=== PATIENT | female | born 1980 | race Caucasian/White ===

== ENCOUNTER 2023-06-29 00:21 | Observation (INO) ==
[2023-06-29] MEDS ORDERED: MoRPHine SULFATE 4 MG/ML 1 ML CARP\\VIAL IV STA (00:55)
[2023-06-29] MEDS ORDERED: SODIUM CHLORIDE 0.9% 1,000 ML IV ONE (00:55)
[2023-06-29] MEDS ORDERED: KETOROLAC TROMETHAMINE 15 MG/ML VIAL IV STA (00:55)
[2023-06-29] MEDS ORDERED: ONDANSETRON INJ 2 MG/ML 2 ML VIAL IV STA (00:55)
--- NOTE | 2023-06-29 01:01 | Emergency Department Note ---
History of Present Illness General Chief complaint: Kidney Stone Stated complaint: KIDNEY STONE, SEVERE PAIN, VOMITING Time Seen by Provider: 06/29/23 00:51 History of Present Illness Maximum Pain Intensity: 8 This 43-year-old female who was admitted the other day for a kidney stone that had a stent placement the other day and lithotripsy by Dr. Crow presents the ER complaining of severe left flank pain. Patient states the stent came out today on its own. Patient complains of severe pain and vomiting. Patient denies chest pain, dyspnea, fevers, flulike illness. She was concerned and came in. Home Medications Medication Instructions Recorded Confirmed Type acetaminophen 500 mg tablet 500 - 1,000 mg PO Q6H PRN Pain 04/08/21 06/25/23 History fluticasone propionate 50 2 spray intranasal DAILY PRN Nasal 06/25/23 06/25/23 History mcg/actuation nasal Congestion spray,suspension ibuprofen 200 mg tablet (Advil) 200 - 400 mg PO Q6H PRN Pain 06/25/23 06/25/23 History ciprofloxacin HCl 500 mg tablet 500 mg PO BID #20 tabs 06/27/23 Rx (Cipro) tamsulosin 0.4 mg capsule 0.4 mg PO HS #10 caps 06/27/23 Rx Allergies Allergy/AdvReac Type Severity Reaction Status Date / Time No Known Allergies Allergy Unverified 04/08/21 15:42 Past Med/Surg History Medical History No pertinent family history No pertinent past medical history Surgical History History of tonsillectomy Social History Smoking Status: Current some day smoker Second Hand Exposure: No; Do You Dip or Chew Tobacco: No; Hx Alcohol Use: Yes Alcohol type: wine and hard liquor Alcohol Intake Frequency: Monthly or Less Hx Substance Use: Yes Last Used Substance: Hours (ago) Last Used Substance Other:: daily Preferred Language: Wolof Communication Ability: Effective [employer] Specials Required: No Beliefs That Will Affect Care: None Current Living Situation: Spouse Current Living Situation Comment: in a house Feels Safe at Home: Yes Assistive Devices: None Review of Systems A total of 10 systems reviewed and were otherwise negative Physical Exam Vital Signs Vital Signs - 24 hr 06/29/23 00:29 06/29/23 01:15 06/29/23 02:15 Temperature 36.9 C Temperature Source Temporal Artery Scan Pulse Rate 72 71 Pulse Rate [Apical] 57 L Respiratory Rate 16 16 Respiratory Effort / Characteristics Non-Labored Spontaneous Non-Labored Spontaneous Respiratory Depth Normal Normal Respiratory Pattern Regular Blood Pressure 156/94 H Blood Pressure [Left Arm] 160/99 H Blood Pressure Mean 114 Blood Pressure Mean [Left Arm] 119 Pulse Oximetry 98 96 Oxygen Delivery Method Room Air Room Air Sepsis Recent Fever Within 48 Hours No Sepsis New/Unexplained Change in Mental Status N/A Sepsis Action Taken by Nursing No Action Required VITALS: Vitals are noted on the nurse's note and reviewed by myself. Vital signs stable. GENERAL: Pleasant female holding the vomit bag, in no acute distress, nondiapho retic, well-developed well-nourished. SKIN: The skin was without rashes, erythema, edema, or bruising. There is no tenting of the skin. Capillary reflex less than 2 seconds. HEAD: Normocephalic atraumatic. EARS: External auditory canals clear, EYES: Pupils equal round and reactive to light and accommodation. Conjunctivae without injection, sclerae without icterus. Extraocular movements intact. NOSE: Patent, turbinates without inflammation or discharge. MOUTH: Mucous membranes moist. Pharynx without erythema or exudate. Uvula midline. Airway patent. Tongue does not deviate. NECK: Supple without nuchal rigidity. No lymphadenopathy. No thyromegaly. Cervical spine is nontender. No JVD. HEART: Regular rate and rhythm LUNGS: Clear to auscultation bilaterally without wheezes, rales or rhonchi. No retractions or accessory muscle use. ABDOMEN: Positive bowel sounds x 4. Normal tympanic percussion. Soft, nontender, without masses or organomegaly. Reid sign negative. No guarding or rebound tenderness. No CVA tenderness MUSCULOSKELETAL: No muscle atrophy, erythema, or edema noted. NEURO: Patient was alert and oriented to person place and time. Normal sensatio n to light and sharp touch. No focal neurological deficits. Course Administered Medications Discontinued Medications Sodium Chloride (Nss) 1,000 mls @ 999 mls/hr IV .Q1H1M ONE Stop: 06/29/23 01:55 Last Infusion: 06/29/23 03:14 Dose: 0 mls/hr Documented By: terminal carman: 06/29/23 01:34 Dose: 999 mls/hr Documented By: MED Acetaminophen (Ofirmev) 1,000 mg in 100 mls @ 400 mls/hr IV NOW STA Stop: 06/29/23 02:35 Last Infusion: 06/29/23 03:14 Dose: 0 mls/hr Documented By: terminal carman: 06/29/23 02:36 Dose: 400 mls/hr Documented By: MED Ketorolac Tromethamine (Ketorolac Tromethamine 15 Mg/Ml Vial) 10 mg IV NOW STA Stop: 06/29/23 00:56 Last Admin: 06/29/23 01:29 Dose: 10 mg Documented By: MED Morphine Sulfate (Morphine Sulfate 4 Mg/Ml 1 Ml Carp\Vial) 4 mg IV NOW STA Stop: 06/29/23 00:56 Last Admin: 06/29/23 01:36 Dose: 4 mg Documented By: MED Ondansetron HCl (Ondansetron Inj 2 Mg/Ml 2 Ml Vial) 4 mg IV NOW STA Stop: 06/29/23 00:56 Last Admin: 06/29/23 01:31 Dose: 4 mg Documented By: MED Tamsulosin HCl (Tamsulosin Hcl 0.4 Mg Cap) 0.4 mg PO NOW ONE Stop: 06/29/23 02:22 Last Admin: 06/29/23 02:35 Dose: 0.4 mg Documented By: MED Medical Decision Making Medical Records Attestation: I reviewed the patient's medical records. Home Medications Current Medication List: was personally reviewed by me Laboratory Data Attestation: I reviewed the patient's lab results. 06/29/23 01:07 06/29/23 01:07 Lab Results 06/29/23 06/29/23 06/29/23 Range/Units 01:07 01:07 01:07 WBC 13.37 H (4.8-10.8) K/ul RBC 4.82 (4.20-5.40) M/uL Hgb 14.2 (12.0-16.0) g/dl Hct 41.5 (37.0-47.0) % MCV 86.1 (80.0-100.0) fL MCH 29.5 (25.0-34.0) pg MCHC 34.2 (32.0-36.0) g/dL RDW Std Deviation 41.2 (36.4-46.3) fL RDW Coeff of Eliane 13.2 (11.5-14.5) % Plt Count 344 (130-400) K/uL MPV 9.8 (9.4-12.4) fL Immature Gran % (Auto) 0.3 % Neut % (Auto) 82.8 % Lymph % (Auto) 11.4 % [place] % (Auto) 4.9 % Eos % (Auto) 0.3 % Baso % (Auto) 0.3 % Neut # (Auto) 11.07 H (1.40-6.50) K/uL Lymph # (Auto) 1.53 (1.20-3.40) K/uL [place] # (Auto) 0.65 H (0.11-0.59) K/uL Eos # (Auto) 0.04 (0.00-0.50) K/uL Baso # (Auto) 0.04 (0.00-0.20) K/uL Immature Gran # (Auto) 0.04 (0.01-0.20) K/uL Sodium 140 (136-145) mmol/L Potassium 3.4 L (3.5-5.1) mmol/L Chloride 103 (98-107) mmol/L Carbon Dioxide 28 (21-32) mmol/L Anion Gap 9 (3-11) BUN 19 (6-23) mg/dl Creatinine 1.14 D (0.6-1.2) mg/dl Est Cr Clr Drug Dosing 86.9 ml/min Est GFR ( Amer) 68.2 ml/min Est GFR (Non-Af Amer) 58.8 ml/min BUN/Creatinine Ratio 16.7 (10-20) Glucose 156 H (70-99(Fasting)) mg/dl Calcium 10.1 (8.6-10.3) mg/dl Total Bilirubin 0.5 (0.2-1.0) mg/dl AST 12 L (13-39) U/L ALT 10 (7-52) U/L Alkaline Phosphatase 63 (34-104) U/L Total Protein 8.4 H (6.0-8.3) gm/dl Albumin 4.8 (3.4-5.0) gm/dl Globulin 3.6 (2.5-4.0) gm/dl Albumin/Globulin Ratio 1.3 (0.9-2) Urine Color Yellow Urine Appearance Clear (Clear) Urine pH 6.5 (4.5-7.5) Ur Specific [place] 1.021 (1.000-1.030) Urine Protein 2+ H (Negative) Urine Glucose (UA) Negative (Negative) Urine Ketones Trace H (Negative) Urine Blood 3+ H (Negative) Urine Nitrite Negative (Negative) Urine Bilirubin Negative (Negative) Urine Urobilinogen Negative (Negative) Ur Leukocyte Esterase Negative (Negative) Urine WBC (Auto) 1-5 (0-5) /hpf Urine RBC (Auto) >30 H (0-4) /hpf U Hyaline Cast (Auto) 0 (0-5) /lpf U Epithel Cells (Auto) 20-30 H (0-5) /lpf Urine Bacteria (Auto) Negative (Negative) Imaging Data Attestation: I personally reviewed and interpreted this imaging study as follows: Radiologist's Impression: Abdomen/Pelvis CT 06/29/23 00:55 Exam(s): CT ABDOMEN + PELVIS Without Contrast EXAM: CT Abdomen and Pelvis Without Intravenous Contrast CLINICAL HISTORY: Reason for exam: left flank pain. TECHNIQUE: Axial computed tomography images of the abdomen and pelvis without intravenous contrast. CTDI is 27.76 mGy and DLP is 1466.22 mGy-cm. Automated exposure control was utilized for the study. A dose lowering technique was utilized adhering to the principles of ALARA. COMPARISON: June 25, 2023. The FINDINGS: Lung bases: Unremarkable. No mass. No consolidation. ABDOMEN: Liver: The liver is mildly enlarged measuring 19.5 cm craniocaudad. No focal liver lesion is seen. Gallbladder and bile ducts: Unremarkable. No calcified stones. No ductal dilation. Pancreas: Unremarkable. No ductal dilation. Spleen: Unremarkable. No splenomegaly. Adrenals: Unremarkable. No mass. Kidneys and ureters: Mild left hydronephrosis and hydroureter down to the ureterovesicular junction. There are at least 3 small calculi in the distal left ureter measuring up to 4 mm in diameter. Stomach and bowel: See below. PELVIS: Appendix: The appendix is normal. Bowel loops are nondilated. There is diverticulosis of the lower left and sigmoid colon without signs of acute diverticulitis. Bladder: Unremarkable. No stones. Reproductive: There is an IUD within the uterus. No free fluid is seen in the pelvis. ABDOMEN and PELVIS: Intraperitoneal space: See above. Bones/joints: No acute fracture. No dislocation. Soft tissues: Unremarkable. Vasculature: Unremarkable. No abdominal aortic aneurysm. Lymph nodes: Unremarkable. No enlarged lymph nodes. IMPRESSION: Mild left hydronephrosis and hydroureter down to the ureterovesicular junction. There are at least 3 small calculi in the distal left ureter measuring up to 4 mm in diameter. Most of the previously seen 9 mm calculus is no longer present. There are several calyceal calculi the left kidney measuring up to 4 mm. Electronically signed by: Hugh Bryan MD 06/29/23 03:22 AM [facility] Narrative Prior records/ancillary studies reviewed. Triage Nursing notes reviewed. Additional history obtained from the family. The patient's history was concerning for flank pain. Differential diagnosis: Etiologies such as renal colic, appendicitis, diverticulitis, mesenteric ischemia, aortic pathology, infections, inflammatory bowel disease, PUD, biliary pathology, UTI, as well as others were entertained. Physical examination findings: As above. ER treatment provided: Toradol, Zofran, morphine, IV fluids were ordered On reassessment the patient felt better. Diagnostic interpretation by me: The labs Independently Interpreted by myself revealed mild leukocytosis. Urinalysis revealed There was no sign of UTI. Hyperglycemia without DKA Imaging studies: CT the abdomen pelvis was reviewed and independent of myself and read by radiology and was concerning for mild left hydronephrosis and hydroureter down to the ureterovesicular junction. There are at least 3 small calculi in the distal left ureter measuring up to 4 mm in diameter. Most of the previously seen 9 mm calculus is no longer present. There are several calyceal calculi the left kidney measuring up to 4 mm. Consultation: A consultation was placed with the hospitalist. The case was discussed and diagnostics were reviewed. The patient was evaluated in the ER for further treatment. It appears that the patient has isolated renal colic from a left sided stone. Patient still in severe amount of pain. Medicine was consulted and the case discussed. Patient would be admitted to the medical service. Labs and diagnostics were independently interpreted by myself. Prior reports were reviewed. By the evaluation outlined above emergent etiologies such as appen dicitis, diverticulitis, mesenteric ischemia, aortic pathology, infections, inflammatory bowel disease, PUD, biliary pathology, UTI, as well as others were deemed relatively unlikely. The pt informed about the findings as listed above. All questions were answered and pleased with the treatment. The chart was completed utilizing [employer] Speech voice recognition software. Grammatical errors, random word insertions, pronoun errors, and incomplete sentences are an occassional consequence of this system due to software limitations, ambient noise, and hardware issues. Any formal questions or concerns about the content, text, or information contained within the body of this dictation should be directly addressed to the physician assistant professor of communication for clarification. Impression & Plan Hydronephrosis of left kidney, Calculus of distal left ureter, Hypokalemia Discharge Plan Visit Data Chief Complaint: Kidney Stone Stated Complaint: KIDNEY STONE, SEVERE PAIN, VOMITING ED Provider: Taniya Yu ED Midlevel Provider: Deb Ling Discharge Problem: Hydronephrosis of left kidney, Calculus of distal left ureter, Hypokalemia Patient Disposition: Admitted As Inpatient Forms Stand Alone Forms: [facility] Prescriptions Prescriptions: No Action acetaminophen 500 mg Tablet 500 - 1,000 mg PO Q6H PRN (Reason: Pain) ibuprofen [Advil] 200 mg Tablet 200 - 400 mg PO Q6H PRN (Reason: Pain) fluticasone propionate 50 mcg/actuation spray,suspension 2 spray INTRANASAL DAILY PRN (Reason: Nasal Congestion) tamsulosin 0.4 mg Capsule 0.4 mg PO HS Qty: 10 0RF ciprofloxacin HCl [Cipro] 500 mg tablet 500 mg PO BID Qty: 20 0RF Referrals Referrals: Claudia Villar MD [Primary Care Provider] -
[2023-06-29 01:43] LABS: Albumin Globulin Ratio 1.3 (0.9-2); Albumin Level 4.8 gm/dl (3.4-5.0); BUN Creatinine Ratio 16.7 (10-20); Bilirubin,Total 0.5 mg/dl (0.2-1.0); Calcium 10.1 mg/dl (8.6-10.3); Creatinine Clr Calc Pharmacy 86.9 ml/min; Est GFR (African American) 68.2 ml/min; Est GFR (Non-African American) 58.8 ml/min; Globulin 3.6 gm/dl (2.5-4.0); Potassium 3.4 mmol/L (3.5-5.1); Total Protein 8.4 gm/dl (6.0-8.3)
[2023-06-29 02:02] LABS: Basophils # (auto) 0.04 K/uL (0.00-0.20); Basophils % (auto) 0.3 %; Eosinophils # (auto) 0.04 K/uL (0.00-0.50); Eosinophils % (auto) 0.3 %; Hematocrit (blood only) 41.5 % (37.0-47.0); Hemoglobin 14.2 g/dl (12.0-16.0); Immature Granulocytes # (auto) 0.04 K/uL (0.01-0.20); Immature Granulocytes % (auto) 0.3 %; Lymphocytes # (auto) 1.53 K/uL (1.20-3.40); Lymphocytes % (auto) 11.4 %; Mean Corpuscular Hemoglobin 29.5 pg (25.0-34.0); Mean Corpuscular Hgb Conc 34.2 g/dL (32.0-36.0); Mean Corpuscular Volume 86.1 fL (80.0-100.0); Mean Platelet Volume 9.8 fL (9.4-12.4); Monocytes # (auto) 0.65 K/uL (0.11-0.59); Monocytes % (auto) 4.9 %; Neutrophils # (auto) 11.07 K/uL (1.40-6.50); Neutrophils % (auto) 82.8 %; Platelet Count 344 K/uL (130-400); RDW Coefficient of Variation 13.2 % (11.5-14.5); RDW Standard Deviation 41.2 fL (36.4-46.3); Red Blood Count 4.82 M/uL (4.20-5.40); White Blood Count 13.37 K/ul (4.8-10.8)
[2023-06-29 02:09] LABS: Appearance Urine Clear (Clear); Bacteria Urine Automated Negative (Negative); Bilirubin Urine Negative (Negative); Blood Urine 3+ (Negative); Cast Urine Automated 0 /lpf (0-5); Color Urine Yellow; Epithelial Cell Urine Auto 20-30 /lpf (0-5); Glucose Urine UA Negative (Negative); Ketones Urine Trace (Negative); Leukocyte Esterase Urine Negative (Negative); Nitrite Urine Negative (Negative); Protein Urine 2+ (Negative); RBC Urine Automated >30 /hpf (0-4); Specific Gravity Urine 1.021 (1.000-1.030); Urobilinogen Urine Negative (Negative); pH Urine 6.5 (4.5-7.5)
[2023-06-29] MEDS ORDERED: ACETAMINOPHEN 1,000 MG/100 ML VIAL IV STA (02:21)
[2023-06-29] MEDS ORDERED: TAMSULOSIN HCL 0.4 MG CAP PO ONE (02:21)
--- NOTE | 2023-06-29 03:23 | CT Scan Report ---
Exam(s): CT ABDOMEN + PELVIS Without Contrast EXAM: CT Abdomen and Pelvis Without Intravenous Contrast CLINICAL HISTORY: Reason for exam: left flank pain. TECHNIQUE: Axial computed tomography images of the abdomen and pelvis without intravenous contrast. CTDI is 27.76 mGy and DLP is 1466.22 mGy-cm. Automated exposure control was utilized for the study. A dose lowering technique was utilized adhering to the principles of ALARA. COMPARISON: June 25, 2023. The FINDINGS: Lung bases: Unremarkable. No mass. No consolidation. ABDOMEN: Liver: The liver is mildly enlarged measuring 19.5 cm craniocaudad. No focal liver lesion is seen. Gallbladder and bile ducts: Unremarkable. No calcified stones. No ductal dilation. Pancreas: Unremarkable. No ductal dilation. Spleen: Unremarkable. No splenomegaly. Adrenals: Unremarkable. No mass. Kidneys and ureters: Mild left hydronephrosis and hydroureter down to the ureterovesicular junction. There are at least 3 small calculi in the distal left ureter measuring up to 4 mm in diameter. Stomach and bowel: See below. PELVIS: Appendix: The appendix is normal. Bowel loops are nondilated. There is diverticulosis of the lower left and sigmoid colon without signs of acute diverticulitis. Bladder: Unremarkable. No stones. Reproductive: There is an IUD within the uterus. No free fluid is seen in the pelvis. ABDOMEN and PELVIS: Intraperitoneal space: See above. Bones/joints: No acute fracture. No dislocation. Soft tissues: Unremarkable. Vasculature: Unremarkable. No abdominal aortic aneurysm. Lymph nodes: Unremarkable. No enlarged lymph nodes. IMPRESSION: Mild left hydronephrosis and hydroureter down to the ureterovesicular junction. There are at least 3 small calculi in the distal left ureter measuring up to 4 mm in diameter. Most of the previously seen 9 mm calculus is no longer present. There are several calyceal calculi the left kidney measuring up to 4 mm. Electronically signed by: Hugh Bryan MD 06/29/23 03:22 AM
--- NOTE | 2023-06-29 03:59 | History & Physical Report ---
Date of Service June 29, 2023 Assessment & Plan (1) Hydronephrosis of left kidney: (2) Calculus of distal left ureter: (3) Mechanical complication of ureteral stent: Plan Mechanical complication of ureteral stent/distal left ureteral calculi/left hydronephrosis- Patient was initially admitted on 06/25-06/27 for a 9 mm left ureteral calculus On 06/26 patient underwent lithotripsy and ureteral stent placement and was discharged on 06/27 Patient reports that the stent became dislodged, where she was aware of about 2 inches of the stent protruding externally, at which time she pulled the stent out. Urology has recommended patient be admitted for further evaluation and treatment CT scan of abdomen pelvis this point shows a number of small ureteral calculi up to 4 mm in size in the distal left ureter, along with mild left hydronephrosis Follow urine culture sensitivities Ceftriaxone 2 g IV daily Tamsulosin 0.4 mg daily NSS + KCl 20 mEq at 100 mils per hour Acetaminophen 650 mg by mouth every 6 hours as needed for mild pain or fever Toradol 15 mg IV every 6 hours as needed for moderate pain Morphine sulfate 4 mg IV every 3 hours as needed for severe pain NPO except meds Consult urology History of Present Illness Chief Complaint: The patient is referred to the emergency department by outpatient urology when she reported that the left ureteral stent which was placed on 06/26/[address] out, and she pulled it the rest of the way out. Primary Care Provider: Claudia Villar MD The patient is a 43-year-old female with a past medical history including 9 mm distal left ureteral stone with left hydronephrosis, requiring admission from 06/25-06/27/2023 for treatment. She underwent lithotripsy and ureteral stent placement on 06/26/2023, was treated with ceftriaxone IV and tamsulosin by mouth, and was then discharged to home on 07/07. Patient reports that she noted yesterday that about 2 inches of the stent had been visible externally, and she pulled it out the rest of the way, and then called urology on the phone. Urology advised the patient to come to the ED for assessment. CT scan of abdomen and pelvis reveals at least 3 small calculi in the distal left ureter measuring up to 4 mm in diameter, and most of the previously seen 9 mm calculus is no longer present Significant laboratories: WBC 13.37, potassium 3.4, glucose 156 From the ED patient received the following: Normal saline 1 L, Zofran 4 mg IV, Toradol 10 mg IV, morphine sulfate 4 mg IV, tamsulosin 0.4 mg and Tylenol 1 g IV Allergies Allergy/AdvReac Type Severity Reaction Status Date / Time No Known Allergies Allergy Unverified 04/08/21 15:42 Home Medications Medication Instructions Recorded Confirmed Type acetaminophen 500 mg tablet 500 - 1,000 mg PO Q6H PRN Pain 04/08/21 06/25/23 History fluticasone propionate 50 2 spray intranasal DAILY PRN Nasal 06/25/23 06/25/23 History mcg/actuation nasal Congestion spray,suspension ibuprofen 200 mg tablet (Advil) 200 - 400 mg PO Q6H PRN Pain 06/25/23 06/25/23 History ciprofloxacin HCl 500 mg tablet 500 mg PO BID #20 tabs 06/27/23 Rx (Cipro) tamsulosin 0.4 mg capsule 0.4 mg PO HS #10 caps 06/27/23 Rx Past Med/Surg History Medical History No pertinent family history No pertinent past medical history Surgical History History of tonsillectomy Social History Smoking Status: Current some day smoker Second Hand Exposure: No; Do You Dip or Chew Tobacco: No; Hx Alcohol Use: Yes Alcohol type: wine and hard liquor Alcohol Intake Frequency: Monthly or Less Hx Substance Use: Yes Last Used Substance: Hours (ago) Last Used Substance Other:: daily Preferred Language: Vietnamese Communication Ability: Effective 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 Beliefs That Will Affect Care: None Current Living Situation: Spouse Current Living Situation Comment: in a house Feels Safe at Home: Yes Assistive Devices: None Review of Systems Review of Systems: The patient denies chest pain, palpitations, shortness of breath, dyspnea on exertion, cough, lower extremity swelling, sore throat, fevers, chills, sweats, weight change, fatigue, nausea, vomiting, diarrhea , constipation, blood in urine or stool, dysuria, urinary frequency or urgency, lightheadedness, dizziness, headache, memory loss, loss of consciousness, rash, abnormal bruising or bleeding, imbalance, focal or generalized weakness, numbness or tingling in arms or legs, generalized arthralgias or myalgias, back or neck pain, or night sweats. The review of systems is otherwise negative other than for that already noted a antoni, and at least 10 systems have been reviewed. Physical Exam Physical Exam: The patient is awake, alert and oriented 3, well developed and well nourished, normocephalic and atraumatic, lying in bed and in no acute distress. HEENT--PERRL, EOMI, mucous membranes and oropharynx dry. Neck--supple. No JVD. No bruits. Thyroid normal, trachea midline, no adenopathy. Heart--normal S1 and S2. No murmurs, rubs or gallops. Lungs--clear bilaterally, no respiratory distress, no accessory muscle use. Abdomen--normal bowel sounds and soft. Nontender. Nondistended, no hernias or masses, no organomegaly. Extremities--no cyanosis or clubbing. No edema. There are good distal pulses b/l. Dermatologic--normal skin turgor, normal color, no abnormal lymph nodes, no rash. Neurologic--cranial nerves II through XII grossly intact. Rheumatologic--normal range of motion. Psychiatric--normal affect. Results & Data Results & Data Vital Signs (Past 12 Hours) Vital Signs Temp Pulse Pulse Resp BP BP Pulse Ox 06/29/23 02:15 57 L 16 160/99 H 96 06/29/23 01:15 71 06/29/23 00:29 36.9 C 72 16 156/94 H 98 O2 Del Method 06/29/23 02:15 Room Air 06/29/23 01:15 06/29/23 00:29 Room Air Laboratory Results Laboratory Results WBC 13.37 K/ul (4.8-10.8) H 06/29/23 01:07 RBC 4.82 M/uL (4.20-5.40) 06/29/23 01:07 Hgb 14.2 g/dl (12.0-16.0) 06/29/23 01:07 Hct 41.5 % (37.0-47.0) 06/29/23 01:07 MCV 86.1 fL (80.0-100.0) 06/29/23 01:07 MCH 29.5 pg (25.0-34.0) 06/29/23 01:07 MCHC 34.2 g/dL (32.0-36.0) 06/29/23 01:07 RDW Std Deviation 41.2 fL (36.4-46.3) 06/29/23 01:07 RDW Coeff of Eliane 13.2 % (11.5-14.5) 06/29/23 01:07 Plt Count 344 K/uL (130-400) 06/29/23 01:07 MPV 9.8 fL (9.4-12.4) 06/29/23 01:07 Immature Gran % (Auto) 0.3 % 06/29/23 01:07 Neut % (Auto) 82.8 % 06/29/23 01:07 Lymph % (Auto) 11.4 % 06/29/23 01:07 Russell % (Auto) 4.9 % 06/29/23 01:07 Eos % (Auto) 0.3 % 06/29/23 01:07 Baso % (Auto) 0.3 % 06/29/23 01:07 Neut # (Auto) 11.07 K/uL (1.40-6.50) H 06/29/23 01:07 Lymph # (Auto) 1.53 K/uL (1.20-3.40) 06/29/23 01:07 Russell # (Auto) 0.65 K/uL (0.11-0.59) H 06/29/23 01:07 Eos # (Auto) 0.04 K/uL (0.00-0.50) 06/29/23 01:07 Baso # (Auto) 0.04 K/uL (0.00-0.20) 06/29/23 01:07 Immature Gran # (Auto) 0.04 K/uL (0.01-0.20) 06/29/23 01:07 Sodium 140 mmol/L (136-145) 06/29/23 01:07 Potassium 3.4 mmol/L (3.5-5.1) L 06/29/23 01:07 Chloride 103 mmol/L (98-107) 06/29/23 01:07 Carbon Dioxide 28 mmol/L (21-32) 06/29/23 01:07 Anion Gap 9 (3-11) 06/29/23 01:07 BUN 19 mg/dl (6-23) 06/29/23 01:07 Creatinine 1.14 mg/dl (0.6-1.2) D 06/29/23 01:07 Est Cr Clr Drug Dosing 86.9 ml/min 06/29/23 01:07 Est GFR ( Amer) 68.2 ml/min 06/29/23 01:07 Est GFR (Non-Af Amer) 58.8 ml/min 06/29/23 01:07 BUN/Creatinine Ratio 16.7 (10-20) 06/29/23 01:07 Glucose 156 mg/dl (70-99(Fasting)) H 06/29/23 01:07 Calcium 10.1 mg/dl (8.6-10.3) 06/29/23 01:07 Total Bilirubin 0.5 mg/dl (0.2-1.0) 06/29/23 01:07 AST 12 U/L (13-39) L 06/29/23 01:07 ALT 10 U/L (7-52) 06/29/23 01:07 Alkaline Phosphatase 63 U/L (34-104) 06/29/23 01:07 Total Protein 8.4 gm/dl (6.0-8.3) H 06/29/23 01:07 Albumin 4.8 gm/dl (3.4-5.0) 06/29/23 01:07 Globulin 3.6 gm/dl (2.5-4.0) 06/29/23 01:07 Albumin/Globulin Ratio 1.3 (0.9-2) 06/29/23 01:07 Urine Color Yellow 06/29/23 01:07 Urine Appearance Clear (Clear) 06/29/23 01:07 Urine pH 6.5 (4.5-7.5) 06/29/23 01:07 Ur Specific [place] 1.021 (1.000-1.030) 06/29/23 01:07 Urine Protein 2+ (Negative) H 06/29/23 01:07 Urine Glucose (UA) Negative (Negative) 06/29/23 01:07 Urine Ketones Trace (Negative) H 06/29/23 01:07 Urine Blood 3+ (Negative) H 06/29/23 01:07 Urine Nitrite Negative (Negative) 06/29/23 01:07 Urine Bilirubin Negative (Negative) 06/29/23 01:07 Urine Urobilinogen Negative (Negative) 06/29/23 01:07 Ur Leukocyte Esterase Negative (Negative) 06/29/23 01:07 Urine WBC (Auto) 1-5 /hpf (0-5) 06/29/23 01:07 Urine RBC (Auto) >30 /hpf (0-4) H 06/29/23 01:07 U Hyaline Cast (Auto) 0 /lpf (0-5) 06/29/23 01:07 U Epithel Cells (Auto) 20-30 /lpf (0-5) H 06/29/23 01:07 Urine Bacteria (Auto) Negative (Negative) 06/29/23 01:07 Impressions Abdomen/Pelvis CT 06/29/23 00:55 Exam(s): CT ABDOMEN + PELVIS Without Contrast EXAM: CT Abdomen and Pelvis Without Intravenous Contrast CLINICAL HISTORY: Reason for exam: left flank pain. TECHNIQUE: Axial computed tomography images of the abdomen and pelvis without intravenous contrast. CTDI is 27.76 mGy and DLP is 1466.22 mGy-cm. Automated exposure control was utilized for the study. A dose lowering technique was utilized adhering to the principles of ALARA. COMPARISON: June 25, 2023. The FINDINGS: Lung bases: Unremarkable. No mass. No consolidation. ABDOMEN: Liver: The liver is mildly enlarged measuring 19.5 cm craniocaudad. No focal liver lesion is seen. Gallbladder and bile ducts: Unremarkable. No calcified stones. No ductal dilation. Pancreas: Unremarkable. No ductal dilation. Spleen: Unremarkable. No splenomegaly. Adrenals: Unremarkable. No mass. Kidneys and ureters: Mild left hydronephrosis and hydroureter down to the ureterovesicular junction. There are at least 3 small calculi in the distal left ureter measuring up to 4 mm in diameter. Stomach and bowel: See below. PELVIS: Appendix: The appendix is normal. Bowel loops are nondilated. There is diverticulosis of the lower left and sigmoid colon without signs of acute diverticulitis. Bladder: Unremarkable. No stones. Reproductive: There is an IUD within the uterus. No free fluid is seen in the pelvis. ABDOMEN and PELVIS: Intraperitoneal space: See above. Bones/joints: No acute fracture. No dislocation. Soft tissues: Unremarkable. Vasculature: Unremarkable. No abdominal aortic aneurysm. Lymph nodes: Unremarkable. No enlarged lymph nodes. IMPRESSION: Mild left hydronephrosis and hydroureter down to the ureterovesicular junction. There are at least 3 small calculi in the distal left ureter measuring up to 4 mm in diameter. Most of the previously seen 9 mm calculus is no longer present. There are several calyceal calculi the left kidney measuring up to 4 mm. Electronically signed by: Hugh Bryan MD 06/29/23 03:22 AM Code Status & VTE Plan Code Status Full code VTE Prophylaxis Plan VTE Prophylaxis will be ordered: Yes PG Care Time/CCT Total # of Minutes Spent Total Time Spent with Patient: Total time spent is greater than 50% in coordination of care (as documented) at patient's floor/unit and/or counseling patient: Coding Level of Care Code 29615 INT INP/OBS CARE 3/75MIN Diagnoses Hydronephrosis of left kidney N13.30 Calculus of distal left ureter N20.1 Mechanical complication of ureteral stent T83.193A
[2023-06-29] MEDS ORDERED: ONDANSETRON INJ 2 MG/ML 2 ML VIAL IV PRN (06:39)
[2023-06-29] MEDS ORDERED: MoRPHine SULFATE 4 MG/ML 1 ML CARP\\VIAL IV PRN (06:39)
[2023-06-29] MEDS ORDERED: FLUTICASONE PROPIONATE NA SPR 16 GM BTL NAE PRN (06:39)
[2023-06-29] MEDS: cefTRIAXone SODIUM 2,000 MG in DEXTROSE 5 % MINI-B 50 ML IV SCH (07:26)
[2023-06-29] MEDS: NSS + 20MEQ KCL 20 MEQ/1,000 ML BAG IV SCH ×2 (07:30→18:03)
[2023-06-29] MEDS: ACETAMINOPHEN 325 MG TAB PO PRN ×3 (07:37→20:44)
[2023-06-29] MEDS: KETOROLAC TROMETHAMINE 15 MG/ML VIAL IV PRN ×3 (07:38→20:44)
--- NOTE | 2023-06-29 09:48 | Urology Consultation ---
Date of Consultation June 29, 2023 Assessment & Plan (1) Calculus of distal left ureter: (2) Hydronephrosis of left kidney: (3) Renal colic: Plan 43yo/F who underwent left ureteroscopy, laser lithotripsy, stent placement on 06/26/2023 who presented to the ED with severe left flank pain early this morning after her stent became dislodged, at which time she pulled the stent out. CT abdomen pelvis on arrival demonstrated at least 3 small calculi in the distal left ureter measuring up to 4 mm in diameter with mild hydronephrosis. Most of the previously seen 9mm calculus is no longer present. Afebrile and hemodynamically stable. Labs reviewedWBC 13.37, hemoglobin 14.2, creatinine 1.14. Urinalysis not suggestive of infection. Received IV Rocephin. Voiding spontaneously, continue to monitor. We discussed options for acute stone management. Discussed trial of passage with max expulsion medical therapy. Discussed stone passage rates given size and location. Discussed possible repeat ureteroscopy with stone treatment and stent placement. Risks and benefits of each were discussed. Expected clinical course reviewed. All questions were answered. Pain well controlled at present. Patient prefers trial of passage with max expulsion therapy which is reasonable given stone size and location. No plan for urological intervention at this time. Continue supportive care, tamsulosin, pain management. Strain all urine. Urology will follow. History of Present Illness Attending Physician: Jean Carlos Lopez MD History of Present Illness 43-year-old female who was recently admitted from 06/25-06/27/2023 with pain secondary to an obstructing distal left ureteral stone with left hydronephrosis. She underwent ureteroscopy, stone treatment, stent placement on 06/26/[address] Crow and was discharged home the following day. Patient returned to the emergency department early this morning due to severe left flank pain. Patient reports that she noticed yesterday about 2 inches of the stent had been protruding externally, at which time she pulled the stent out. On arrival to the ED, she was afebrile and hemodynamically stable. Labs showing mild leukocytosis and normal renal function. Urinalysis not suggestive of infection. CT abdomen pelvis notable for at least 3 small stones in the distal left ureter with mild left hydronephrosis. ED course: IVF, Zofran, Toradol, morphine, tamsulosin, Tylenol. Patient admitted to medicine service for pain management CT abdomen pelvis Mild left hydronephrosis and hydroureter down to the ureterovesical junction. There are at least 3 small calculi in the distal left ureter measuring up to 4 mm in diameter. Most of the previously seen 9 mm calculus is no longer present. There are several calyceal calculi the left kidney measuring up to 4 mm. Patient examined at bedside this AM. Awake, resting in bed on arrival. No acute distress. Pain has improved with medication. Denies fevers, chills, nausea, vomiting. Voiding without issue. Some mild hematuria, no dysuria. Allergies Allergy/AdvReac Type Severity Reaction Status Date / Time No Known Allergies Allergy Unverified 04/08/21 15:42 Home Medications Medication Instructions Recorded Confirmed Type acetaminophen 500 mg tablet 500 - 1,000 mg PO Q6H PRN Pain 04/08/21 06/29/23 History fluticasone propionate 50 2 spray intranasal DAILY PRN Nasal 06/25/23 06/29/23 History mcg/actuation nasal Congestion spray,suspension ibuprofen 200 mg tablet (Advil) 200 - 400 mg PO Q6H PRN Pain 06/25/23 06/29/23 History ciprofloxacin HCl 500 mg tablet 500 mg PO BID #20 tabs 06/27/23 06/29/23 Rx (Cipro) tamsulosin 0.4 mg capsule 0.4 mg PO HS #10 caps 06/27/23 06/29/23 Rx Patient History Medical History No pertinent family history No pertinent past medical history Surgical History History of tonsillectomy Social History Smoking Status: Current some day smoker Second Hand Exposure: No; Do You Dip or Chew Tobacco: No; Hx Alcohol Use: Yes Alcohol type: wine and hard liquor Alcohol Intake Frequency: Monthly or Less Hx Substance Use: Yes Last Used Substance: Hours (ago) Last Used Substance Other:: daily Preferred Language: Romanian Communication Ability: Effective Educational Technologist Required: No Beliefs That Will Affect Care: None Current Living Situation: Spouse Current Living Situation Comment: in a house Feels Safe at Home: Yes Assistive Devices: None Review of Systems Review of Systems: All systems reviewed & are unremarkable except as noted in HPI & below Physical Exam Constitutional: cooperative; no acute distress Neck: normal visual inspection Respiratory: normal respiratory effort; no respiratory distress and no labored breathing Musculoskeletal: Head/Neck/Chest: normocephalic Skin: No visible rashes or lesions to exposed skin areas Neurologic: moves all extremities and awake Psychiatric: A+Ox3, euthymic affect Results & Data Vital Signs (Past 12 Hours) Vital Signs Temp Pulse Pulse Resp BP BP Pulse Ox 06/29/23 07:41 69 16 139/92 94 06/29/23 07:02 70 06/29/23 06:05 70 15 128/89 94 06/29/23 05:07 64 06/29/23 02:15 57 L 16 160/99 H 96 06/29/23 01:15 71 06/29/23 00:29 36.9 C 72 16 156/94 H 98 O2 Del Method 06/29/23 07:41 Room Air 06/29/23 07:02 06/29/23 06:05 Room Air 06/29/23 05:07 06/29/23 02:15 Room Air 06/29/23 01:15 06/29/23 00:29 Room Air PG Care Time/CCT Total # of Minutes Spent Total Time Spent with Patient: Total time spent is greater than 50% in coordination of care (as documented) at patient's floor/unit and/or counseling patient: Coding Level of Care Code 29189 IN/OBS CONSULT LVL 3,45M Diagnoses Calculus of distal left ureter N20.1 Hydronephrosis of left kidney N13.30 Renal colic N23
--- NOTE | 2023-06-29 13:05 | Hospitalist Progress Note ---
Date of Service June 29, 2023 Assessment & Plan (1) Hydronephrosis of left kidney: Plan: Seen on previous cystoscopy. Renal function is (2) Calculus of distal left ureter: Plan: Recent laser lithotripsy of left ureter calculus. She had stent placement but unfortunately it came out. Urology consultation and recommendations noted (3) Mechanical complication of ureteral stent: Plan: The stent spontaneously came out of place. Urology consultation noted. No intervention at this time. Continue IV fluids and Flomax Plan Hopeful discharge to home tomorrow, June 30 Admission and Anticipated Discharge Date Admission Date: June 29, 2023 Subjective Alert and oriented. No distress. She was just discharged the other day after insertion of left ureter stent with laser lithotripsy of an obstructing stone. Unfortunately the stent has come out. Urology consultation noted. No intervention at this time. We will continue IV fluids and tamsulosin and see how she does. Review of Systems Review of Systems: Constitutional-no fever or chills ENT-no blurred vision, no double vision, no epistaxis, no sore throat Respiratory-no cough, no wheezing, no shortness of breath Cardiac-no palpitations, no chest pain, no syncope GI-no nausea, vomiting, diarrhea, melena, hematochezia -no urinary retention, no urinary incontinence, no dysuria, no hematuria Musculoskeletal-no joint pain, no muscle tenderness Skin-no bruising, no rashes, no pruritus Neuro-no isolated weakness, no paresthesia, no weakness Psych-no depression, no anxiety Physical Exam Physical Exam: General-alert and oriented x3, no fevers, no chills HEENT-head atraumatic and normocephalic, pupils equal and reactive to light, extraocular muscles intact Neck-no lymphadenopathy or thyromegaly, trachea midline Chest-clear to auscultation percussion. No rales wheezing or rhonchi Cardiac-regular rate and rhythm, normal S1 and S2 Abdomen-normal bowel sounds, nontender, no hepatosplenomegaly Extremities-no cyanosis, clubbing, or edema Neuro-cranial nerves II through XII intact, motor and sensory function within normal limits, strength symmetrical, no focal deficits Psych-normal affect, normal mood Results & Data Results & Data Vital Signs (Past 12 Hours) Vital Signs Pulse Pulse Resp BP Pulse Ox O2 Del Method 06/29/23 07:41 69 16 139/92 94 Room Air 06/29/23 07:02 70 06/29/23 06:05 70 15 128/89 94 Room Air 06/29/23 05:07 64 06/29/23 02:15 57 L 16 160/99 H 96 Room Air 06/29/23 01:15 71 Laboratory Results 06/29/23 01:07 06/29/23 01:07 PG Care Time/CCT Total # of Minutes Spent Total Time Spent with Patient: Total time spent is greater than 50% in coordination of care (as documented) at patient's floor/unit and/or counseling patient: Coding Level of Care Code 76470 SUB INP/OBS CARE 3/50MIN Diagnoses Hydronephrosis of left kidney N13.30 Calculus of distal left ureter N20.1 Mechanical complication of ureteral stent T83.193A
[2023-06-29] MEDS ORDERED: TAMSULOSIN HCL 0.4 MG CAP PO SCH (21:00)
[2023-06-30] MEDS: ACETAMINOPHEN 325 MG TAB PO PRN ×2 (03:16→10:40)
[2023-06-30] MEDS: NSS + 20MEQ KCL 20 MEQ/1,000 ML BAG IV SCH (03:43)
[2023-06-30 06:36] LABS: Basophils # (auto) 0.04 K/uL (0.00-0.20); Basophils % (auto) 0.5 %; Eosinophils # (auto) 0.12 K/uL (0.00-0.50); Eosinophils % (auto) 1.5 %; Hematocrit (blood only) 33.5 % (37.0-47.0); Hemoglobin 11.7 g/dl (12.0-16.0); Immature Granulocytes # (auto) 0.04 K/uL (0.01-0.20); Immature Granulocytes % (auto) 0.5 %; Lymphocytes # (auto) 1.65 K/uL (1.20-3.40); Mean Corpuscular Hemoglobin 29.8 pg (25.0-34.0); Mean Corpuscular Hgb Conc 34.9 g/dL (32.0-36.0); Mean Corpuscular Volume 85.5 fL (80.0-100.0); Mean Platelet Volume 9.6 fL (9.4-12.4); Monocytes # (auto) 0.67 K/uL (0.11-0.59); Monocytes % (auto) 8.1 %; Neutrophils # (auto) 5.73 K/uL (1.40-6.50); Neutrophils % (auto) 69.4 %; Platelet Count 254 K/uL (130-400); RDW Coefficient of Variation 13.2 % (11.5-14.5); RDW Standard Deviation 40.9 fL (36.4-46.3); Red Blood Count 3.92 M/uL (4.20-5.40); White Blood Count 8.25 K/ul (4.8-10.8)
[2023-06-30] MEDS: cefTRIAXone SODIUM 2,000 MG in DEXTROSE 5 % MINI-B 50 ML IV SCH (06:39)
[2023-06-30] MEDS: KETOROLAC TROMETHAMINE 15 MG/ML VIAL IV PRN (06:40)
[2023-06-30 07:00] LABS: BUN Creatinine Ratio 12.9 (10-20); Calcium 8.5 mg/dl (8.6-10.3); Creatinine Clr Calc Pharmacy 106.5 ml/min; Est GFR (African American) 87.2 ml/min; Est GFR (Non-African American) 75.3 ml/min; Potassium 3.4 mmol/L (3.5-5.1)
--- NOTE | 2023-06-30 09:07 | Urology Progress Note ---
Date of Service June 30, 2023 Assessment & Plan (1) Calculus of distal left ureter: (2) Hydronephrosis of left kidney: (3) Renal colic: Plan 43yo/F who underwent left ureteroscopy, laser lithotripsy, stent placement on 06/26/2023 who presented to the ED with severe left flank pain early this morning after her stent became dislodged, at which time she pulled the stent out. CT abdomen pelvis on arrival demonstrated at least 3 small calculi in the distal left ureter measuring up to 4 mm in diameter with mild hydronephrosis. Most of the previously seen 9mm calculus is no longer present. Afebrile and hemodynamically stable. Labs reviewed-WBC 8.25, hemoglobin 11.7, creatinine 0.93. Urinalysis not suggestive of infection. On IV Rocephin. Voiding spontaneously, continue to monitor. We again discussed options for acute stone management. Discussed trial of pa ssage with max expulsion medical therapy. Discussed stone passage rates given size and location. Discussed possible repeat ureteroscopy with stone treatment and stent placement. Risks and benefits of each were discussed. Expected clinical course reviewed. All questions were answered. Pain well controlled at present. Patient prefers trial of passage with max expulsion therapy which is ed sonable given stone size and location. No plan for urological intervention at this time. Continue supportive care, tamsulosin, pain management. Strain all urine. Will arrange outpatient follow-up with urology service. Urology will follow peripherally. Please contact us with any further questions, concerns, or changes in patient's status. Plan of care reviewed with Dr. Crow, on-call urologist. Admission and Anticipated Discharge Date Admission Date: June 29, 2023 Subjective Patient examined at bedside this AM. Awake, resting in bed on arrival. No acute distress. She did have some nausea overnight. Pain is currently well controlled. Denies any noticeable stone passage. Denies fevers or chills. Voiding without issue, denies hematuria or dysuria. Review of Systems Constitutional: as per Subjective / HPI Gastrointestinal: as per Subjective / HPI Genitourinary: as per Subjective / HPI Physical Exam Constitutional: well developed and well nourished; no acute distress Respiratory: normal respiratory effort; no respiratory distress and no labored breathing Skin: No visible rashes or lesions to exposed skin areas Neurologic: moves all extremities and awake Psychiatric: A+Ox3, euthymic affect Results & Data Vital Signs (Past 12 Hours) Vital Signs Temp Pulse Resp BP Pulse Ox O2 Del Method 06/29/23 23:50 36.4 C L 76 16 132/91 97 Room Air PG Care Time/CCT Total # of Minutes Spent Total Time Spent with Patient: Total time spent is greater than 50% in coordination of care (as documented) at patient's floor/unit and/or counseling patient: Coding Level of Care Code 78073 SUB INP/OBS CARE 2/35MIN Diagnoses Calculus of distal left ureter N20.1 Hydronephrosis of left kidney N13.30 Renal colic N23
[2023-06-30] MEDS ORDERED: POTASSIUM CHLORIDE CRTAB 20 MEQ TABCR PO STA (10:50)
--- NOTE | 2023-06-30 13:27 | Discharge Summary ---
Date of Service June 30, 2023 Admission HPI Per Admitting Provider The patient is a 43-year-old female with a past medical history including 9 mm distal left ureteral stone with left hydronephrosis, requiring admission from 06/25-06/27/2023 for treatment. She underwent lithotripsy and ureteral stent placement on 06/26/2023, was treated with ceftriaxone IV and tamsulosin by mouth, and was then discharged to home on 07/07. Patient reports that she noted yesterday that about 2 inches of the stent had been visible externally, and she pulled it out the rest of the way, and then called urology on the phone. Urology advised the patient to come to the ED for assessment. CT scan of abdomen and pelvis reveals at least 3 small calculi in the distal left ureter measuring up to 4 mm in diameter, and most of the previously seen 9 mm calculus is no longer present Significant laboratories: WBC 13.37, potassium 3.4, glucose 156 From the ED patient received the following: Normal saline 1 L, Zofran 4 mg IV, Toradol 10 mg IV, morphine sulfate 4 mg IV, tamsulosin 0.4 mg and Tylenol 1 g IV Principal Diagnosis Accidental extrusion of left ureter stent, hypokalemia Discharge Exam General-alert and oriented x3, no fevers, no chills HEENT-head atraumatic and normocephalic, pupils equal and reactive to light, extraocular muscles intact Neck-no lymphadenopathy or thyromegaly, trachea midline Chest-clear to auscultation percussion. No rales wheezing or rhonchi Cardiac-regular rate and rhythm, normal S1 and S2 Abdomen-normal bowel sounds, nontender, no hepatosplenomegaly Extremities-no cyanosis, clubbing, or edema Neuro-cranial nerves II through XII intact, motor and sensory function within normal limits, strength symmetrical, no focal deficits Psych-normal affect, normal mood Discharge Data Allergies Allergy/AdvReac Type Severity Reaction Status Date / Time No Known Allergies Allergy Unverified 04/08/21 15:42 Consultations 06/29/23 02:59 ED Decision to Admit Stat 06/29/23 06:39 Consult Urology Routine Ordered Studies 06/29/23 00:55 CT abd pelvis wo con Stat Hospital Course (1) Hydronephrosis of left kidney: Seen on previous cystoscopy. Renal function is stable (2) Calculus of distal left ureter: Recent laser lithotripsy of left ureter calculus. She had stent placement but unfortunately it came out. Urology consultation and recommendations noted. No plan for stent replacement at this time (3) Mechanical complication of ureteral stent: The stent spontaneously came out of place. Urology consultation noted. No intervention at this time. Treated while hospitalized with IV fluids and Flomax Plan Home today, June 30, on Flomax with addition of Reglan as needed for nausea and tramadol as needed for pain Total Time Total Time Spent Total Time Spent (In Minutes): 40 minutes Discharge Plan Discharge Items Patient Disposition: Home - Self-Care Reason For Visit: URETERAL STENT COMPLICATION Discharge Diagnosis: Accidental extrusion of left ureter stent Activity: Resume your previous activity Non-emergency contact: Urologist Call non-emergency contact if: you have any medication questions and your symptoms worsen Follow-up/Referrals: Claudia Villar MD [Primary Care Provider] - Diet: Regular Addtl Attending Provider Instructions: Take tramadol as needed for pain. Take Reglan as needed for nausea Pending Studies at Discharge: No Stand-Alone Forms: My [facility] [place], Smoking Cessation Medications and DC Order Prescriptions: New metoclopramide HCl 5 mg tablet 5 mg PO Q6H PRN (Reason: nausea and vomiting) Qty: 20 0RF tramadol 50 mg tablet 50 mg PO Q6H PRN (Reason: pain) Qty: 20 0RF Continued acetaminophen 500 mg Tablet 500 - 1,000 mg PO Q6H PRN (Reason: Pain) ibuprofen [Advil] 200 mg Tablet 200 - 400 mg PO Q6H PRN (Reason: Pain) fluticasone propionate 50 mcg/actuation spray,suspension 2 spray INTRANASAL DAILY PRN (Reason: Nasal Congestion) tamsulosin 0.4 mg Capsule 0.4 mg PO HS Qty: 10 0RF ciprofloxacin HCl [Cipro] 500 mg tablet 500 mg PO BID Qty: 20 0RF Discharge Orders: Discharge Order (Routine); Ordered 06/30/23 Ordered By: Bryant Perry Admission Data Admit Date/Time: 06/29/23 03:58 Attending Provider: Bryant Perry Admit Provider: Jean Carlos Lopez Primary Care Provider: Claudia Villar Other Providers: Jean Carlos Lopez ; Rmoero,Boom H. Coding Level of Care Code 07016 INP/OBS DISCH >30 MIN Diagnoses Hydronephrosis of left kidney N13.30 Calculus of distal left ureter N20.1 Mechanical complication of ureteral stent T83.193A
== END 2023-06-30 14:20 | disposition home or self-care (01) ==
LOC: ED 00:21 → EDINP 00:21 → SUATTDRO 03:58 → EDINP 06:40 → 4E1 16:49
DX: Z79.899 Other long term (current) drug therapy; N13.2 Hydronephrosis with renal and ureteral calculous obstruction; Y73.2 Prosthetic and other implants, materials and accessory gastroenterology and urology devices associated with adverse incidents; T83.193A Other mechanical complication of other urinary stent, initial encounter; F17.200 Nicotine dependence, unspecified, uncomplicated